=== PATIENT | female | born 1975 | race Caucasian/White ===

== ENCOUNTER 2017-09-15 16:48 | Emergency (ER) | payer BC ==
[2017-09-15] MEDS ORDERED: Sodium Chloride 0.9% 1,000 ML IV STA ×3 (17:16→22:04)
--- NOTE | 2017-09-15 17:24 | ED PDOC ---
HPI: Abdomen Time Seen by Provider: 09/15/17 17:10 Chief Complaint (Nursing): Abdominal Pain Chief Complaint (Provider): malaise, vomiting, diarrhea, abd pain History Per: Patient History/Exam Limitations: no limitations Onset/Duration Of Symptoms: Hrs (approx 18), Sudden Onset Current Symptoms Are (Timing): Still Present Location Of Pain/Discomfort: Diffuse Quality Of Discomfort: Cramping Associated Symptoms: Fever, Chills, Nausea, Vomiting, Diarrhea, Loss Of Appetite Exacerbating Factors: None Alleviating Factors: None Additional Complaint(s): 42yo female sent from clinic for flu like symptoms and evidence of clinical dehydration. States awoke this am 2am with fever, chills, malaise, body aches, nausea/vomiting/diarrhea. [place] weak all day. Poor oral intake and now dizzy. Notes crampy diffuse abdominal pain, denies syncope, cough, sore throat or urinary symptoms Past Medical History Reviewed: Historical Data, Nursing Documentation, Vital Signs Vital Signs: Last Vital Signs Temp 98.7 F 09/15/17 16:52 Pulse 97 H 09/15/17 16:52 Resp 16 09/15/17 16:52 BP 151/95 H 09/15/17 16:52 Pulse Ox 98 09/15/17 19:44 - Medical History PMH: No Chronic Diseases - Surgical History Surgical History: Other surgeries: benign throat cyst - Family History Family History: States: Unknown Family Hx - Living Arrangements Living Arrangements: With Family - Social History Current smoker - smoking cessation education provided: No Alcohol: Social - Allergies Allergies/Adverse Reactions: Allergies Allergy/AdvReac Type Severity Reaction Status Date / Time No Known Allergies Allergy Verified 09/15/17 16:55 Review of Systems Constitutional: Positive for: Fever, Chills, Weakness, Malaise Eyes: Negative for: Vision Change, Eyelid Inflammation ENT: Negative for: Nose Discharge, Throat Pain, Throat Swelling Cardiovascular: Negative for: Chest Pain, Palpitations Respiratory: Negative for: Cough, Shortness of Breath Gastrointestinal: Positive for: Nausea, Vomiting, Abdominal Pain, Diarrhea Genitourinary Female: Negative for: Dysuria, Hematuria Musculoskeletal: Positive for: Other (myalgia). Negative for: Neck Pain, Back Pain Skin: Negative for: Rash, Lesions, Jaundice Neurological: Positive for: Dizziness. Negative for: Weakness, Numbness, Headache Psych: Negative for: Anxiety Physical Exam - Reviewed Nursing Documentation Reviewed: Yes Vital Signs Reviewed: Yes - Physical Exam Appears: Positive for: Well, Non-toxic, No Acute Distress Head Exam: Positive for: ATRAUMATIC, NORMAL INSPECTION, NORMOCEPHALIC Skin: Positive for: Normal Color, Warm, DRY Eye Exam: Positive for: EOMI, Normal appearance, PERRL ENT: Positive for: Normal ENT Inspection Neck: Positive for: Normal, Painless ROM Cardiovascular/Chest: Positive for: Regular Rate, Rhythm Respiratory: Positive for: CNT, Normal Breath Sounds Gastrointestinal/Abdominal: Positive for: Soft. Negative for: Tenderness, Guarding, Rebound Back: Positive for: Normal Inspection Extremity: Positive for: Normal ROM. Negative for: Tenderness, Swelling Neurologic/Psych: Positive for: Alert, Oriented. Negative for: Motor/Sensory Deficits - Laboratory Results Result Diagrams: 09/15/17 17:40 09/15/17 18:40 - ECG O2 Sat by Pulse Oximetry: 98 Medical Decision Making Medical Decision Making: workup initiated for flu like symptoms, IVF and toradol ordered, labs/ flu swab 730p patient now reports continued abd discomfort, central and alerted contract technical writer to history of severe ischemic colitis in her 20s requiring prolonged hospitalization along with polyps removed via colonoscopy several years ago. Abd exam + periumbilical tenderness She also noted new acute onset of R eye discomfort, on exam conjunctival edema/ mild sclera fluid collection laterally, cornea/pupil quiet. Initiate Polytrim drops possible viral component. Denies recent contact use or visual changes. Denies FB sensation. Disposition - Clinical Impression Clinical Impression: Abdominal pain - Patient ED Disposition Is Patient to be Admitted: Transfer of Care - Disposition Disposition: Transfer of Care Disposition Time: 19:42 Condition: STABLE Forms: [employer] (Nauruan) Patient Signed Over To: Med Weaver Handoff Comments: pending CT abd/pelv and dispo
[2017-09-15 17:56] LABS: BASO % 0.3 % (0.0-2.0); EOS % 0.3 % (0.0-4.0); HEMOGLOBIN 14.9 g/dL (12.0-16.0); LYMPH # 0.7 K/uL (1.0-4.3); LYMPH % 9.4 % (20.0-40.0); MEAN CELL VOLUME 90.8 fl (81.0-99.0); MEAN CORPUSCULAR HEMOGLOBIN 30.3 pg (27.0-31.0); MEAN CORPUSCULAR HGB CONC 33.3 g/dL (33.0-37.0); MEAN PLATELET VOLUME 7.8 fl (7.2-11.7); MONO # 0.2 K/uL (0.0-0.8); MONO % 3.1 % (0.0-10.0); NEUT # 6.6 K/uL (1.8-7.0); NEUT % 86.9 % (50.0-75.0); NRBC % 0.1 % (0.0-0.0); PLATELET COUNT 220 K/uL (130-400); RBC 4.94 Mil/uL (3.80-5.20); RED CELL DISTRIBUTION WIDTH 13.9 % (11.5-14.5); WHITE BLOOD COUNT 7.6 K/uL (4.8-10.8)
[2017-09-15 18:10] LABS: CALCIUM 8.9 mg/dL (8.4-10.2); GFR AFRICAN-AMERICAN > 60; GFR NON-AFRICAN AMERICAN > 60
[2017-09-15 19:06] LABS: BANDS 3 % (0-2); LYMPHOCYTE 10 % (20-50); MONOCYTE 7 % (0-10); NEUTROPHIL 80 % (42-75); PLATELET ESTIMATE NORMAL (NORMAL); TOTAL CELLS COUNTED 100
[2017-09-15 19:07] LABS: HYPOCHROMIC SLIGHT
[2017-09-15 19:15] LABS: BLOOD UREA NITROGEN 14 mg/dl (7-17)
[2017-09-15 19:17] LABS: ALBUMIN 3.8 g/dL (3.5-5.0)
[2017-09-15 19:19] LABS: ALT/SGPT 41 U/L (9-52); AST/SGOT 24 U/L (14-36)
[2017-09-15 19:20] LABS: ALB/GLOB RATIO 1.2 (1.0-2.1)
[2017-09-15] MEDS ORDERED: Iohexol 240 (50 ml) PO ONE (19:40)
[2017-09-15] MEDS ORDERED: Sodium Chloride 0.9% 50 ML IV ONE (19:50)
[2017-09-15] MEDS ORDERED: Iohexol 300 100 ML IJ ONE (19:50)
[2017-09-15] MEDS ORDERED: Polymyxin/Trimethoprim Ophth Soln OD ONE (20:00)
[2017-09-15] MEDS ORDERED: HYDROmorphone 0.5 mg/0.5 ml ISec IVP STA (20:05)
--- NOTE | 2017-09-15 20:59 | ED PDOC ---
"- Laboratory Results Result Diagrams: 09/15/17 17:40 09/15/17 18:40 - ECG O2 Sat by Pulse Oximetry: 98 Medical Decision Making Medical Decision Making: Time: 19:45 Patient signed out to me by Dr. Dumont pending CT abd/pelv and dispo Time: 22:30 FINDINGS: Lower thorax: No acute findings. VASCULATURE: Aorta: No acute findings. No abdominal aortic aneurysm. No dissection. Celiac trunk and mesenteric arteries: Just distal to the origin of the celiac trunk is a less than 50% stenosis, with poststenotic dilatation . Normal branching anatomy is otherwise detected. The superior mesenteric artery is normal caliber, without hemodynamically significant stenosis. The inferior mesenteric artery is patent. Renal arteries: No acute findings. No occlusion or significant stenosis. Iliac arteries: No acute findings. No occlusion or significant stenosis. ABDOMEN: Liver: Steatosis. PATI JIMENES | Preliminary Radiology Report CAR RENTAL AGENCY MANAGER (QA) DISCREPANCY? If there is a discrepancy between the preliminary and final interpretation, please notify [facility] via [email or web address]. If you do not have access to our QA portal, call our QA team at [phone] CONFIDENTIALITY STATEMENT This report is intended only for the use of the referring physician, and only in accordance with law, If you received this in error, call [phone] Page 2 of 2 Gallbladder and bile ducts: The gallbladder is decompressed. No calcified stones. No significant intra- or extrahepatic biliary ductal dilation. Pancreas: Enhances homogeneously. No ductal dilation. No discrete mass. Spleen: No acute findings. Adrenals: No acute findings. Kidneys and ureters: No acute findings. No hydronephrosis or renal calculi. No discrete solid mass. PELVIS: Bladder: No acute findings. Reproductive: Asymmetric enlargement of the right ovary, with a 2 cm focus of decreased attenuation, likely an involuting cyst. The the uterus is anteverted and anteflexed, and otherwise unremarkable. The left ovary is unremarkable. Appendix: The air filled appendix is of normal caliber (series 3, image 122) . ABDOMEN and PELVIS: Stomach and bowel: The stomach is distended with contrast. Oral contrast extends to the level of the cecum, without obstruction. No mucosal thickening. Colonic diverticulosis without inflammation. Peritoneum: No significant fluid collection. No free air. Lymph nodes: No pathologically enlarged lymph nodes. Vasculature: As above. Bones: No acute fracture. IMPRESSION: Less than 50% stenosis within the celiac axis, just distal to the origin. Involuting cyst within the right ovary, which is asymmetrically enlarged. Confirmation may be performed with pelvic ultrasound. No CT evidence to suggest the presence of ischemic colitis, as detailed above. Patient is feeling better, less abdominal pain, eye pain/redness better after polytrim. Explained results of CT to patient, advised to f/u regarding stenosis. Advised to f/u w/ FENCE INSTALLER HELPER regarding ovarian cyst with rupture. Patient states she feels as though she has the flu, will give tamiflu but advised patient to reassess tomorrow to see if it is needed. Return precautions discsused. Scribe Attestation: Documented by Alexander Gallegos, acting as a scribe for Med Weaver MD. Provider Scribe Attestation: All medical record entries made by the Scribe were at my direction and personally dictated by me. I have reviewed the chart and agree that the record accurately reflects my personal performance of the history, physical exam, medical decision making, and the department course for this patient. I have also personally directed, reviewed, and agree with the discharge instructions and disposition. Disposition - Clinical Impression Clinical Impression: Ruptured ovarian cyst - POA Present On Arrival: None - Disposition [facility] Thomas Blanton MD [Staff Provider] - Disposition: Routine/Home Disposition Time: 22:30 Condition: STABLE Prescriptions: Ibuprofen [Motrin Tab] 600 mg PO Q6 #30 tab Oseltamivir Phosphate [Tamiflu] 75 mg PO BID 5 Days capsule Polymyxin/Trimethoprim Sulfate [Polytrim Ophth Soln] 1 drop OS Q3 #1 bottle Instructions: Ovarian Cyst (ED), Conjunctivitis (ED) Forms: [employer] (Slovenian)"
[2017-09-15 21:02] LABS: SQUAMOUS EPITHIAL 9 /hpf (0-5); URINE BILIRUBIN NEGATIVE (NEGATIVE); URINE BLOOD SMALL (NEGATIVE); URINE CLARITY CLOUDY (Clear); URINE COLOR YELLOW (YELLOW); URINE GLUCOSE (UA) NEG (Normal); URINE LEUKOCYTE ESTERASE NEG Leu/uL (Negative); URINE NITRATE NEGATIVE (NEGATIVE); URINE PROTEIN NEGATIVE (NEGATIVE); URINE UROBILINOGEN 0.2-1.0 mg/dL (0.2-1.0)
[2017-09-15 22:08] VITALS: BP 117/72; PULSE 87; RESP 15; TEMP 98.9
[2017-09-15 22:44] LABS: VENOUS BLOOD GAS PCO2 42 mmHg (40-60); VENOUS BLOOD GAS PO2 41 mm/Hg (30-55); VENOUS BLOOD PH 7.34 (7.32-7.43)
[2017-09-16 04:41] VITALS: O2SAT 98
--- NOTE | 2017-09-16 08:32 | CT ---
PROCEDURE: CT Angiography abdomen and pelvis HISTORY: hx ischemic colitis 15 ago, now abd pain COMPARISON: None. TECHNIQUE: Technique: CT angiography of the abdomen & pelvis performed in the arterial phase of enhancement. Coronal and sagittal reformats, and well as rotating MIP images of the vessels generated at the workstation. Intravenous contrast dose: 90 mL Omnipaque 300 Radiation dose: Total exam DLP = 598.2 mGy-cm. This CT exam was performed using one or more of the following dose reduction techniques: Automated exposure control, adjustment of the mA and/or kV according to patient size, and/or use of iterative reconstruction technique. FINDINGS: CT ANGIOGRAPHY: Celiac [place]: Patent. Mild to moderate proximal stenosis with poststenotic dilatation. Superior mesenteric artery: Unremarkable. Inferior mesenteric artery: Unremarkable. Renal arteries: Unremarkable. Right Common Iliac: Unremarkable. Right External Iliac: Unremarkable. Right Internal Iliac: Unremarkable. Right Common Femoral: Unremarkable. Right Superficial Femoral: Unremarkable. Right Profunda Femoris: Unremarkable. Left Common Iliac: Unremarkable. Left External Iliac: Unremarkable. Left Internal Iliac: Unremarkable. Left Common Femoral: Unremarkable. Left Superficial Femoral: Unremarkable. Left Profunda Femoris: Unremarkable. NON-ANGIOGRAPHIC ASPECT OF THE EXAM: LOWER THORAX: 3 millimeter right middle lobe subpleural nodule (series 3, image 5). No focal consolidation or pleural effusion. Heart size normal. LIVER: Unremarkable. No gross lesion or ductal dilatation. GALLBLADDER AND BILE DUCTS: Unremarkable. PANCREAS: Unremarkable. No gross lesion or ductal dilatation. SPLEEN: Unremarkable. ADRENALS: Unremarkable. No mass. KIDNEYS AND URETERS: Unremarkable. No hydronephrosis. No solid mass. STOMACH AND BOWEL: Unremarkable. No obstruction. No gross mural thickening. APPENDIX: Normal appendix. PERITONEUM: Unremarkable. No free fluid. No free air. LYMPH NODES: Unremarkable. No enlarged lymph nodes. BLADDER: Unremarkable. REPRODUCTIVE: Dominant right ovarian follicle. BONES: No acute fracture. OTHER FINDINGS: None. IMPRESSION: No evidence of colitis. 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 This configuration can be seen in the setting of median arcuate ligament syndrome.
== END 2017-09-15 23:36 | disposition home or self-care (01) ==
LOC: H.ER 16:48
DX: N83.201 Unspecified ovarian cyst, right side (principal); H10.9 Unspecified conjunctivitis
CPT/HCPCS: 74175; 80053; 81003; 81025; 82550; 82803; 82948; 84484; 85025; 87804; 96374; 99283; J1170; J1885; J2405; J2765; J7040; Q9966; Q9967